=== PATIENT | female | born 1995 | race Caucasian/White ===

== ENCOUNTER 2018-04-14 21:11 | Emergency (ER) | payer MEDICAID ==
[~2018-04-14] VITALS: Ht 157.5 cm; Wt 59.1 kg
[2018-04-14 21:26] VITALS: Ht 157.5 cm; Wt 59.1 kg
[2018-04-15 02:45] VITALS: BP 130/72
== END 2018-04-15 02:45 | disposition home or self-care (01) ==
LOC: D.ER 21:11
DX: S09.90XA Unspecified injury of head, initial encounter (principal); W54.1XXA Struck by dog, initial encounter; Y93.89 Activity, other specified; Y92.019 Unspecified place in single-family (private) house as the place of occurrence of the external cause; M54.2 Cervicalgia; R68.84 Jaw pain